=== PATIENT | male | born 1960 | race Caucasian/White ===

== ENCOUNTER 2017-08-26 12:24 | Inpatient (IN) | payer MEDICARE, MEDICAID ==
[2017-08-26] VITALS (8 sets, daily range): BP systolic 108–147; BP diastolic 60–76
[~2017-08-26] VITALS: Ht 172.7 cm; Wt 89.1 kg
[~2017-08-26 12:24] MED LIST: ACCUNEB SO1.25 MG/1 INH; AMARYL4 MG PO; AMITRIPTYLINE H25 M2 PO; ASPIRIN EC81 M1 PO; AUGMENTIN 875875 MG PO; CARVEDILOL12.5 MG PO; CARVEDILOL25 MG PO; CELEBREX 200 M200 M1 PO; COUMADIN 2 MG TA2 M1 PO; DIFLUCAN200 MG PO; DUONEB 2.5-0.5 M3 ML INH; FEOSOL325 M1 PO; FISH OIL 1,001000 M2 PO; GLYBURIDE 5 MG T5 MG PO; HUMALOG PE100 UNIT/M SC; HYDRALAZINE 2525 MG PO; HYDROCHLOROTHIA25 M2 PO; IMDUR 30 MG TAB30 M1 PO; KLOR-CON 1010 MEQ PO; LANTUSSOLASTAR SUBQ; LASIX 40 MG TAB40 M2 PO; LEVAQUIN 500 M500 M2 PO; LISINOPRIL10 MG PO; LISINOPRIL20 MG PO; LOPRESSOR50 PO; LYRICA 50 MG50 MG PO; MEN'S 50+ DAIL1 EACH PO; METFORMIN HCL500 MG PO; MOBIC15 MG PO; NEBULIZER; NEURONTIN 300300 M1 PO; NORVASC10 MG PO; OMEPRAZOLE40 MG PO; POTASSIUM20 PO; PREDNISONE 10 M10 MG PO; PRILOSEC 20 MG20 MG PO; TOPROL XL100 MG PO; VENTOLIN HFA 1818 GM INH; VITAMIN B122500 MCG PO; VITAMIN E400 UNIT PO; VITAMINC500 PO; XARELTO15 MG PO; ZESTORETIC 10-1 EACH PO; ZOCOR20 MG PO; [UNRECOGNIZED DRUG - OTHER] PO
[2017-08-26] MEDS ORDERED: CELEBREX 200 M200 M1 PO (12:38)
[2017-08-26] MEDS ORDERED: LYRICA 50 MG50 MG PO (12:39)
[2017-08-26] MEDS ORDERED: AMARYL4 MG PO (12:40)
[2017-08-26] MEDS ORDERED: PROTONIX40 M1 PO (12:40)
[2017-08-26] MEDS ORDERED: NITROGLYCERIN0.4 MG SUBLING (12:40)
[2017-08-26] MEDS ORDERED: KLOR-CON 1010 MEQ PO (12:40)
[2017-08-26 13:27] LABS: MPV 8.6 fl. (7.2-11.1)
[2017-08-26 13:29] LABS: HEMATOCRIT 28.2 % (42.0-52.0); HEMOGLOBIN 8.9 gm/dL (14.0-18.0); MCH 26.9 pg (26.0-34.0); MCHC 31.7 g/dL (28.0-37.0); MCV 84.9 fL (80.0-100.0); NUCLEATED RBCS 0 /100WBC; PLATELET COUNT* 154 thou/uL (150-400); RBC 3.32 mil/uL (4.50-6.00); WBC 7.3 thou/uL (4.0-11.0)
[2017-08-26 13:32] LABS: BE -14.1 mmol/L (-2 to +3); HCO3 13.2 mmol/L (22.0-26.0); PCO2 35.7 mmHg (35.0-45.0); PO2 61.7 mmHg (75.0-100.0)
[2017-08-26 13:32] LABS: ANION GAP 12 mmol/L (7-16); BUN 88 mg/dL (7-18); CALCIUM 7.3 mg/dL (8.5-10.1); CHLORIDE 114 mmol/L (98-107); CO2 17 mmol/L (21-32); CREATININE 6.3 mg/dL (0.6-1.3); GLUCOSE 129 mg/dL (70-99); SODIUM 143 mmol/L (136-145)
[2017-08-26 13:34] LABS: pH 7.185 (7.340-7.450)
[2017-08-26 13:39] LABS: POTASSIUM 6.9 mmol/L (3.5-5.1)
[2017-08-26 13:43] LABS: ALBUMIN 2.3 g/dL (3.4-5.0); ALKALINE PHOSPHATASE 189 U/L (46-116); MAGNESIUM 1.8 mg/dL (1.8-2.4); NT-PRO BRAIN NAT PEPTIDE > 35000 pg/mL (<300); SGOT 17 U/L (15-37); SGPT 23 U/L (30-65); TOTAL BILIRUBIN 0.2 mg/dL (<0.1-1.0); TOTAL PROTEIN 6.1 g/dL (6.4-8.2); TROPONIN-I LEVEL <0.06 ng/mL (<0.06)
[2017-08-26 14:09] LABS: ABSOLUTE EOSINOPHILS 0.2 thou/uL (0.0-0.7); ABSOLUTE LYMPHOCYTES 0.7 thou/uL (0.8-5.3); ABSOLUTE MONOCYTES 0.1 thou/uL (0.0-1.2); ABSOLUTE NEUTROPHILS 6.3 thou/uL (1.6-8.1)
[2017-08-26 14:10] LABS: ANISOCYTOSIS 2+; PLATELET ESTIMATE ADEQUATE
--- NOTE | 2017-08-26 15:20 | EKG ---
[place] [address] ELECTROCARDIOGRAM REPORT Name: ANA MARÍA MCLAUGHLIN Room: [place] [address] ADM IN R#: [id number] Admission: 08/26/17 Attend Phys: Tien Gong Discharge: Date of : 64 Report #: [id number] THIS REPORT FOR: //name// [facility] ED Test Date: 2017-08-26 Test Time: 13:37:14 Pat Name: ANA MARÍA MCLAUGHLIN Department: Room: Gender: M Sign Fabricator: KENJI : 1960 Requested By: Mervat Callahan Order Number: [id number] MD: Chris King Measurements Intervals [place] Rate: 77 P: 32 OR: 210 QRS: 50 QRSD: 113 T: 22 QT: 413 QTc: 468 Interpretive Statements Sinus rhythm Prolonged OR interval Borderline intraventricular conduction delay Low voltage, extremity leads Compared to ECG 03/29/2016 15:50:55 First degree AV block now present Low QRS voltage now present Electronically Signed On 08-26-2017 15:20:44 CDT by Chris King [email or web address] <ELECTRONICALLY SIGNED> By: Chris King MD, [facility] 08/26/17 1520 1337 1337 Chris King MD, [facility] /EPI
[2017-08-26 21:47] LABS: CREATININE 6.4 mg/dL (0.6-1.3)
[2017-08-27] VITALS (22 sets, daily range): BP systolic 130–177; BP diastolic 73–97
[2017-08-27 04:59] LABS: CALCIUM 7.5 mg/dL (8.5-10.1); CREATININE 6.4 mg/dL (0.6-1.3)
[2017-08-27 05:05] LABS: POTASSIUM 6.8 mmol/L (3.5-5.1)
[2017-08-27 08:23] LABS: CALCIUM 7.6 mg/dL (8.5-10.1); CREATININE 6.3 mg/dL (0.6-1.3)
[2017-08-27 08:27] LABS: POTASSIUM 6.3 mmol/L (3.5-5.1)
[2017-08-27 12:20] LABS: % SATURATION 13 % (20-39); IRON 28 ug/dL (50-175)
[2017-08-28] VITALS (13 sets, daily range): BP systolic 132–177; BP diastolic 44–99
[2017-08-28 04:07] LABS: HEMATOCRIT 25.5 % (42.0-52.0); HEMOGLOBIN 8.2 gm/dL (14.0-18.0); MCH 26.7 pg (26.0-34.0); MCHC 32.3 g/dL (28.0-37.0); MCV 82.8 fL (80.0-100.0); MPV 7.9 fl. (7.2-11.1); RBC 3.08 mil/uL (4.50-6.00); RDW-CV 18.4 % (10.5-14.5); WBC 8.3 thou/uL (4.0-11.0)
[2017-08-28 04:36] LABS: ALBUMIN 2.2 g/dL (3.4-5.0); CALCIUM 7.3 mg/dL (8.5-10.1); CREATININE 5.1 mg/dL (0.6-1.3); PHOSPHORUS* 5.6 mg/dL (2.5-4.9); TOTAL BILIRUBIN 0.3 mg/dL (<0.1-1.0)
[2017-08-28 13:09] LABS: HEPATITIS B SURFACE AG Negative (Negative)
[2017-08-29] VITALS: BP 130/82
[2017-08-29 04:00] VITALS: BP 130/69
[2017-08-29 04:58] LABS: CALCIUM 6.7 mg/dL (8.5-10.1); CREATININE 4.3 mg/dL (0.6-1.3); POTASSIUM 4.2 mmol/L (3.5-5.1)
[2017-08-29 07:47] VITALS: BP 125/74
[2017-08-29 08:43] LABS: HEMOGLOBIN 7.7 gm/dL (14.0-18.0); MCH 26.5 pg (26.0-34.0); MCHC 32.2 g/dL (28.0-37.0); MCV 82.4 fL (80.0-100.0); MPV 8.9 fl. (7.2-11.1); RBC 2.91 mil/uL (4.50-6.00); RDW-CV 18.2 % (10.5-14.5)
[2017-08-29 08:49] LABS: MAGNESIUM 1.3 mg/dL (1.8-2.4); PHOSPHORUS* 4.2 mg/dL (2.5-4.9)
[2017-08-29 12:25] VITALS: BP 122/66
[2017-08-29 15:53] VITALS: BP 119/63
[2017-08-29 20:00] VITALS: BP 117/64
[2017-08-30 00:10] VITALS: BP 124/68
[2017-08-30 04:10] VITALS: BP 119/63
[2017-08-30 05:21] LABS: CALCIUM 6.7 mg/dL (8.5-10.1); CREATININE 4.9 mg/dL (0.6-1.3); POTASSIUM 4.7 mmol/L (3.5-5.1); TOTAL BILIRUBIN 0.4 mg/dL (<0.1-1.0); TOTAL PROTEIN 5.1 g/dL (6.4-8.2)
[2017-08-30 08:00] VITALS: BP 111/59
[2017-08-30 08:41] LABS: URINE BILIRUBIN NEGATIVE (Negative); URINE BLOOD 2+ (Negative); URINE CLARITY CLEAR; URINE COLOR YELLOW; URINE GLUCOSE-RANDOM NEGATIVE (Negative); URINE KETONES NEGATIVE (Negative); URINE LEUKOCYTES-REFLEX 1+ (Negative); URINE NITRITE-REFLEX NEGATIVE (Negative); URINE PROTEIN 3+ (Negative); URINE UROBILINOGEN 0.2 E.U./dl (0.2-1.0)
[2017-08-30 08:57] LABS: HYALINE CASTS 0-3 Few /LPF (None Seen); SQUAMOUS NONE SEEN /LPF (0-3)
[2017-08-30 08:58] LABS: CRYSTALS None Seen /LPF (None Seen); URINE RBC 0-2 Rare /HPF (0-2); URINE WBC-REFLEX 6-15 Few /HPF (0-5); YEAST-REFLEX Present (None Seen)
[2017-08-30 12:19] VITALS: BP 109/70
[2017-08-30 16:23] VITALS: BP 147/78
[2017-08-30 20:00] VITALS: BP 126/66
[2017-08-31] VITALS: BP 117/67
[2017-08-31 04:00] VITALS: BP 111/63
[2017-08-31 04:34] LABS: ABSOLUTE EOSINOPHILS 0.4 thou/uL (0.0-0.7); ABSOLUTE LYMPHOCYTES 0.8 thou/uL (0.8-5.3); ABSOLUTE MONOCYTES 1.4 thou/uL (0.0-1.2); ABSOLUTE NEUTROPHILS 5.1 thou/uL (1.6-8.1); BASOPHILS 0.4 %; EOSINOPHILS 4.7 %; HEMATOCRIT 23.6 % (42.0-52.0); HEMOGLOBIN 7.6 gm/dL (14.0-18.0); LYMPHOCYTES 10.1 %; MCH 26.7 pg (26.0-34.0); MCHC 32.1 g/dL (28.0-37.0); MCV 83.1 fL (80.0-100.0); MONOCYTES 18.1 %; NUCLEATED RBCS 0 /100WBC; PLATELET COUNT* 132 thou/uL (150-400); POLYS 66.7 %; RBC 2.84 mil/uL (4.50-6.00); RDW-CV 17.7 % (10.5-14.5); WBC 7.7 thou/uL (4.0-11.0)
[2017-08-31 04:54] LABS: CALCIUM 7.1 mg/dL (8.5-10.1); MAGNESIUM 1.6 mg/dL (1.8-2.4); POTASSIUM 4.2 mmol/L (3.5-5.1)
[2017-08-31 05:00] LABS: CREATININE 3.5 mg/dL (0.6-1.3)
[2017-08-31 09:30] VITALS: BP 125/64
[2017-08-31 12:00] VITALS: BP 137/71
[2017-08-31 16:00] VITALS: BP 145/79
[2017-08-31 20:00] VITALS: BP 145/76
[2017-09-01 00:47] VITALS: BP 131/66
[2017-09-01 04:21] VITALS: BP 175/74
[2017-09-01 08:00] VITALS: BP 139/74
[2017-09-01 11:43] LABS: CALCIUM 7.2 mg/dL (8.5-10.1); MAGNESIUM 1.6 mg/dL (1.8-2.4); PHOSPHORUS* 5.2 mg/dL (2.5-4.9); POTASSIUM 4.9 mmol/L (3.5-5.1)
[2017-09-01 11:44] LABS: CREATININE 4.6 mg/dL (0.6-1.3)
[2017-09-01 12:00] VITALS: BP 142/64
[2017-09-01 16:00] VITALS: BP 105/55
[2017-09-01 17:13] LABS: eGFR IF AFRICAN AMERICAN 17 (>59)
[2017-09-01 20:00] VITALS: BP 151/75
[2017-09-02] VITALS (7 sets, daily range): BP systolic 130–149; BP diastolic 68–90
[2017-09-02 06:08] LABS: ALBUMIN 1.9 g/dL (3.4-5.0); CALCIUM 7.2 mg/dL (8.5-10.1); MAGNESIUM 1.6 mg/dL (1.8-2.4); PHOSPHORUS* 4.4 mg/dL (2.5-4.9); POTASSIUM 4.1 mmol/L (3.5-5.1)
[2017-09-02 06:20] LABS: CREATININE 3.1 mg/dL (0.6-1.3)
[2017-09-02 11:14] LABS: PARATHYROID HORMONE 174 pg/mL (15-65)
--- NOTE | 2017-09-02 15:46 | OP ---
[facility] [address] [place] [address] OPERATIVE REPORT Name: ANA MARÍA MCLAUGHLIN Room: [address] IN M.R.#: [id number] Admission: 08/26/17 Attend Phys: Tien Gong Discharge: Date of : 64 Report #: [id number] THIS REPORT FOR: //name// CC: RANJANA Buckley DATE OF SERVICE: 09/02/2017 PREOPERATIVE DIAGNOSIS: End-stage renal disease. POSTOPERATIVE DIAGNOSIS: End-stage renal disease. PROCEDURE: Over the wire exchange of a temporary dialysis catheter for a tunneled dialysis catheter. SURGEON: Abhay Smallwood DO. LSW: None. ANESTHESIA: Sedation local. ESTIMATED BLOOD LOSS: 50 mL. FLUIDS: None. SPECIMENS: None. COMPLICATIONS: None. FINDINGS: Catheter was positioned at the tip of the right atrium SVC junction, tunneled well, flushed and aspirated well without issue. CLINICAL HISTORY: The patient is a 57-year-old man who is currently undergoing hemodialysis through a temporary right IJ dialysis catheter. He is in need of exchange for a tunneled dialysis catheter for more durable option. DESCRIPTION OF PROCEDURE: After informed consent was obtained, the patient was taken to the angio suite, placed on the angio bed in supine position. He was administered 1 Versed and 25 mcg fentanyl by the nurse at my discretion. His right neck was prepped and draped in usual sterile fashion. Full timeout was performed identifying correct patient and procedure. Next, the wire was passed through the temporary dialysis catheter down the IVC. Removed the temporary dialysis catheter and then placed the introducer sheath over the wire. Enlarged the skin incision in the neck. I then passed a second wire again under fluoroscopic guidance in the IVC. I then dilated the tract and then passed the catheter over the wire under fluoroscopic guidance [place] [address] OPERATIVE REPORT Name: ANA MARÍA MCLAUGHLIN Room: [address] IN [facility]#: [id number] Admission: 08/26/17 Attend Phys: Tien Gong Discharge: Date of : 64 Report #: [id number] atrium SVC junction. This was all done after anesthetizing the skin and subcutaneous tissues lidocaine anesthetic. I then anesthetized the right chest wall, made a small stab incision in the right chest wall, passed the tunneler retrograde up to the neck incision and then fixed catheter to the tunneler and tunneled under fluoroscopic guidance to ensure no kink or twist. The catheter was then tailored to length. Both ports were applied. Both ports aspirated and flushed well. Both ports were packed with concentrated heparin. The neck incision was closed with 3-0 Monocryl suture. The catheter secured to the chest wall with 3-0 Monocryl suture. Sterile dressings were applied. All sponge, sharp and instrument counts reported correct x 2. He tolerated the procedure well and was transferred back to his room in stable condition. <ELECTRONICALLY SIGNED> By: Abhay Smallwood DO 09/02/17 1546 1524 1544Austfer Smallwood DO /nt
[2017-09-03 03:52] VITALS: BP 139/69; BP 144/77
[2017-09-03 05:28] LABS: HEMATOCRIT 24.4 % (42.0-52.0); HEMOGLOBIN 7.8 gm/dL (14.0-18.0); MCH 26.4 pg (26.0-34.0); MCHC 32.1 g/dL (28.0-37.0); MCV 82.4 fL (80.0-100.0); MPV 8.3 fl. (7.2-11.1); NUCLEATED RBCS 0 /100WBC; PLATELET COUNT* 164 thou/uL (150-400); RBC 2.96 mil/uL (4.50-6.00); RDW-CV 16.7 % (10.5-14.5); WBC 11.3 thou/uL (4.0-11.0)
[2017-09-03 06:17] LABS: ALBUMIN 1.8 g/dL (3.4-5.0); CALCIUM 7.4 mg/dL (8.5-10.1); CREATININE 3.7 mg/dL (0.6-1.3); MAGNESIUM 1.7 mg/dL (1.8-2.4); PHOSPHORUS* 5.3 mg/dL (2.5-4.9); POTASSIUM 4.1 mmol/L (3.5-5.1)
[2017-09-03 07:52] VITALS: BP 130/71
[2017-09-03 08:57] LABS: ABSOLUTE BASOPHILS 0.1 thou/uL (0.0-0.2); ABSOLUTE EOSINOPHILS 0.2 thou/uL (0.0-0.7); ABSOLUTE LYMPHOCYTES 0.8 thou/uL (0.8-5.3); ABSOLUTE MONOCYTES 0.8 thou/uL (0.0-1.2); ABSOLUTE NEUTROPHILS 9.4 thou/uL (1.6-8.1)
[2017-09-03 08:58] LABS: HYPOCHROMASIA Occasional; MACROCYTES Occasional; PLATELET ESTIMATE ADEQUATE
[2017-09-03 08:59] LABS: SCHISTOCYTES Occasional
[2017-09-03 16:00] VITALS: BP 137/63
[2017-09-04] VITALS: BP 154/72
[2017-09-04 04:00] VITALS: BP 133/72
[2017-09-04 04:56] LABS: HEMOGLOBIN 7.9 gm/dL (14.0-18.0); MCH 26.4 pg (26.0-34.0); MCHC 31.5 g/dL (28.0-37.0); MCV 83.9 fL (80.0-100.0); MPV 8.2 fl. (7.2-11.1); RBC 2.98 mil/uL (4.50-6.00); RDW-CV 16.7 % (10.5-14.5); WBC 10.8 thou/uL (4.0-11.0)
[2017-09-04 05:21] LABS: ALBUMIN 1.8 g/dL (3.4-5.0); CALCIUM 7.3 mg/dL (8.5-10.1); CREATININE 4.1 mg/dL (0.6-1.3); MAGNESIUM 1.7 mg/dL (1.8-2.4); PHOSPHORUS* 4.4 mg/dL (2.5-4.9); POTASSIUM 4.2 mmol/L (3.5-5.1)
[2017-09-04 08:00] VITALS: BP 141/72
[2017-09-04 23:41] VITALS: BP 147/73
[2017-09-05 03:29] VITALS: BP 114/76
[2017-09-05 05:20] LABS: ALBUMIN 1.8 g/dL (3.4-5.0); CALCIUM 7.5 mg/dL (8.5-10.1); MAGNESIUM 1.7 mg/dL (1.8-2.4); PHOSPHORUS* 3.4 mg/dL (2.5-4.9); POTASSIUM 3.8 mmol/L (3.5-5.1)
[2017-09-05 05:21] LABS: CREATININE 3.1 mg/dL (0.6-1.3)
[2017-09-05 08:00] VITALS: BP 142/69
[2017-09-05 11:30] VITALS: BP 136/71
[2017-09-05] MEDS ORDERED: HYDROCODON-ACE1 EAC7 PO ×2 (14:05→15:04)
[2017-09-05 14:12] LABS: IgA 247 mg/dL (90-386); IgG 971 mg/dL (700-1600); IgM 106 mg/dL (20-172)
[2017-09-05 16:00] VITALS: BP 127/63
[2017-09-05 19:35] VITALS: BP 134/65
[2017-09-06 00:04] VITALS: BP 153/67
[2017-09-06 03:49] VITALS: BP 145/70
[2017-09-06 08:00] VITALS: BP 153/76
[2017-09-06] MEDS ORDERED: FLOMAX0.4 MG PO ×2 (16:01→16:19)
[2017-09-06 16:11] VITALS: BP 153/76
[2017-09-06] MEDS ORDERED: XARELTO20 MG PO (16:13)
[2017-09-06] MEDS ORDERED: VITAMIN D1000 UNI1 PO (16:17)
--- NOTE | 2017-09-07 15:18 | CON ---
[address] [address] CONSULTATION Name: ANA MARÍA MCLAUGHLIN Room: [address] IN M.R.#: [id number] Admission: 08/26/17 Attend Phys: Tien Gong Discharge: 09/06/17 Date of : 64 Report #: [id number] THIS REPORT FOR: //name// CC: RANJANA Buckley DICTATED BY: Julisa ALFARO This is CORY Travis dictating in collaboration with Dr. Charlie العراقي. REASON FOR CONSULTATION: Tunneled dialysis catheter placement. HISTORY OF PRESENT ILLNESS: The patient is a 57-year-old male who presented to the Emergency Department with complaints of shortness of breath, cough, congestion, and chills. He also complained of generalized swelling. He does have a history of kidney disease, but apparently has not followed up as an outpatient. He was found to be in acute renal failure on admission, thought to be related to recent Bactrim use. He has bilateral foot wounds, follows at the [address] for local wound care. He had a temporary dialysis catheter placed in the right internal jugular vein on 08/27 for the initiation of hemodialysis. We have been asked to evaluate the patient for placement of a tunneled dialysis catheter for ongoing dialysis needs. The patient currently complains of feeling "wore out." He continues to complain of generalized edema. He reports he has done very little walking over the past year. He is able to walk some in his home with a walker, utilizes a scooter when he goes to the grocery store. He does live in his own home. PAST MEDICAL HISTORY: 1. Renal insufficiency. 2. Diabetes mellitus. 3. Hypertension. 4. Obesity. 5. Hypercholesterolemia. 6. Tobaccoism. 7. History of a right carotid artery rupture in 1995. 8. Neuropathy. 9. Congestive heart failure. 10. Chronic obstructive pulmonary disease. 11. Coronary artery disease. 12. History of bilateral lower extremity deep vein thrombosis. 13. 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 14. History of pulmonary emboli. PAST SURGICAL HISTORY: 1. Cervical fusion x 2. 2. [place] [address] CONSULTATION Name: ANA MARÍA MCLAUGHLIN Room: [address]#: [id number] Admission: 08/26/17 Attend Phys: Tien Gong Discharge: 09/06/17 Date of : 64 Report #: [id number] 3. Abdominal hernia repair. 4. Removal of a benign lipoma from his abdomen. 5. Right thumb amputation. SOCIAL HISTORY: He is a former smoker. He does live in his own home. FAMILY HISTORY: Significant for heart disease, diabetes, hypertension, renal disease. ALLERGIES: LEVOFLOXACIN. HOME MEDICATIONS: 1. Elavil 100 mg at bedtime. 2. Imdur 30 mg daily. 3. Norvasc 10 mg daily. 4. Feosol 325 mg twice daily. 5. Lantus insulin 15 units before breakfast. 6. Humalog insulin 1-7 units subcutaneously with meals. 7. AccuNeb 1.25 mg per 3 mL, 2 puffs by inhalation every 6 hours as needed for shortness of air. 8. Lasix 80 mg daily. 9. Celebrex 200 mg daily. 10. Lyrica 50 mg daily. 11. Nitrostat 0.4 mg sublingually as needed for chest pain. 12. Amaryl 4 mg daily. 13. Protonix 40 mg daily. 14. Klor-Con 10 mEq daily. 15. Zocor 40 mg at bedtime. 16. Coreg 25 mg twice daily. REVIEW OF SYSTEMS: A 12-point review of systems has been reviewed and is negative except for the above-mentioned in the history of present illness. PHYSICAL EXAMINATION: GENERAL: He is alert, oriented, in no acute distress. He does appear somewhat lethargic, generalized edema. HEENT: Head is normocephalic, atraumatic. NECK: Supple, he has a temporary dialysis catheter on the right neck. No carotid bruit appreciated. HEART: Regular rate and rhythm. CHEST: Lungs are clear to auscultation bilaterally. ABDOMEN: Soft, nontender, positive bowel sounds. EXTREMITIES: He has palpable bilateral radial, femoral and 1+ pedal pulses. He has ulcers on the right lateral plantar foot as well as 1 ulcer on the left lateral plantar foot, superficial wound on the posterior aspect of the left lower leg. He has chronic hemosiderin [place] [address] CONSULTATION Name: ANA MARÍA MCLAUGHLIN Marie Room: [address]#: [id number] Admission: 08/26/17 Attend Phys: Tien Gong Discharge: 09/06/17 Date of : 64 Report #: [id number] with chronic skin changes. NEUROLOGIC: Alert and oriented with no focal neurologic deficits. LABORATORY DATA: Hemoglobin 7.6, hematocrit 23.6, white blood cell count 7.7, platelets is 132. Sodium 134, potassium 4.9, chloride 98, CO2 of 29, BUN 46, creatinine is 4.6. ASSESSMENT AND PLAN: 1. Acute on chronic renal insufficiency, currently on dialysis via a right temporary dialysis catheter. We have been asked to place a tunneled dialysis catheter. The patient ate lunch this afternoon, so we are unable to place a line today. We will try to coordinate tunneled dialysis catheter placement tomorrow. Continue hemodialysis per Nephrology. 2. Chronic bilateral lower extremity wounds, he follows as an outpatient weekly at [facility]. Needs to offload, continue local wound care. 3. Chronic obstructive pulmonary disease. 4. Pneumonia. We thank you for the opportunity to participate in the care of the patient. Please feel free to contact our office with any questions or concerns. <ELECTRONICALLY SIGNED> By: Jacob Benoit DO 09/07/17 1518 1417 Magalis العراقي MD /katelin
--- NOTE | 2017-09-08 09:59 | CON ---
[address] [address] CONSULTATION Name: ANA MARÍA MCLAUGHLIN Room: [address] IN M.R.#: [id number] Admission: 08/26/17 Attend Phys: Tien Gong Discharge: 09/06/17 Date of : 64 Report #: [id number] THIS REPORT FOR: //name// CC: RANJANA Buckley DATE OF SERVICE: 08/27/2017 REQUESTING PHYSICIAN: Durga Buckley DO. REASON FOR CONSULTATION: Acute on chronic kidney disease and hyperkalemia. HISTORY OF PRESENT ILLNESS: The patient is a 57-year-old white male with medical history of medical noncompliance. He was seen by us year ago with renal problems, fairly advanced at that time, never followed with us in the office. He has poorly controlled diabetes, poorly controlled hypertension, morbid obesity, hypercholesterolemia, presents to the hospital with the complaints of not feeling well, having shortness of breath, cough, worsening of his edema. The patient apparently was taking Bactrim for his wound cleaning for the last 10 days. PAST MEDICAL HISTORY: As I mentioned earlier, his renal disease is fairly advanced. Creatinine was 2.9 in 11/2016, at that time GFR was already in low 20s. Again, no followup with us. Most likely, he has diabetic nephropathy. The rest of the history was as mentioned earlier. In the Emergency Room, he was found to be acidotic with bicarbonate of 14. His serum potassium was 7.0, BUN was 95, creatinine 6.3. The patient initially refused dialysis. He was treated with Kayexalate, calcium gluconate, glucose, bicarbonate, insulin. His potassium this morning is 6.3. Creatinine unchanged 6.3 as well. SOCIAL HISTORY: Positive for tobacco abuse. FAMILY HISTORY: Positive for diabetes in both parents. REVIEW OF SYSTEMS: Positive for weakness, not feeling well, nausea, cough, shortness of breath, increased edema. PHYSICAL EXAMINATION: GENERAL: He is awake and alert. VITAL SIGNS: Blood pressure 163/73, heart rate 87, afebrile. HEENT: [place] [address] CONSULTATION Name: ANA MARÍA MCLAUGHLIN Room: [address]#: [id number] Admission: 08/26/17 Attend Phys: Tien Gong Discharge: 09/06/17 Date of : 64 Report #: [id number] NECK: Elevated JVD. LUNGS: Decreased breath sounds at the bases. CARDIOVASCULAR: Regular rate. ABDOMEN: Obese with abdominal wall swelling. LOWER EXTREMITIES: With edema. ASSESSMENT: 1. A 57-year-old man with chronic kidney disease stage 4, possibly stage 5, presents with acute worsening of his renal function, probably due to Bactrim, but there is also a possibility that he is just progressing and now his creatinine of 6 at his baseline. At this point, due to resistant hyperkalemia, metabolic acidosis, fluid overload, I will start him on dialysis. We will start him with temporary dialysis line, dialyze him 2-1/2 hours today. We will watch his urine output, watch his renal function. The patient may require chronic dialysis. Again, that could be end-stage renal disease due to progressive diabetic nephropathy. 2. Uncontrolled diabetes mellitus. 3. Uncontrolled hypertension. 4. Obesity. 5. Coronary artery disease. 6. Chronic obstructive pulmonary disease. Thank you very much for asking my opinion on acute kidney injury and hyperkalemia. <ELECTRONICALLY SIGNED> By: Beinto Schaeffer MD 09/08/17 0959 1118 1740Alexaarun Schaeffer MD /nt
[2017-09-08 14:09] LABS: KAPPA FREE LIGHT CHAINS 115.4 mg/L (3.3-19.4); LAMBDA FREE LIGHT CHAINS 84.7 mg/L (5.7-26.3)
[2017-09-08 19:09] LABS: GLOBULIN TOTAL 2.9 g/dL (2.2-3.9); M-SPIKE Not Observed g/dL (Not Observed)
== END 2017-09-06 18:56 | disposition home health service (06) | DRG 177 ==
LOC: M.ERS 12:24 → M.ICU 15:06 → M.TBA-ER 15:06 → M.ICU 17:01 → M.2W 08-29 12:58
PROVIDERS: Internal Medicine; Internal Medicine Nephrology; Personal Emergency Response Attendant; ADMIT Internal Medicine
PROC: 02HV33Z Insertion of Infusion Device into Superior Vena Cava, Percutaneous Approach (ICD-10-PCS; principal; 2017-08-27)
PROC: B548ZZA Ultrasonography of Superior Vena Cava, Guidance (ICD-10-PCS; principal; 2017-08-27)
PROC: 5A1D70Z Performance of Urinary Filtration, Intermittent, Less than 6 Hours Per Day (ICD-10-PCS; 2017-08-28)
PROC: 5A1D70Z Performance of Urinary Filtration, Intermittent, Less than 6 Hours Per Day (ICD-10-PCS; 2017-08-31)
PROC: 5A1D70Z Performance of Urinary Filtration, Intermittent, Less than 6 Hours Per Day (ICD-10-PCS; 2017-09-01)
PROC: 02HV33Z Insertion of Infusion Device into Superior Vena Cava, Percutaneous Approach (ICD-10-PCS; 2017-09-02)
PROC: B5181ZA Fluoroscopy of Superior Vena Cava using Low Osmolar Contrast, Guidance (ICD-10-PCS; 2017-09-02)
PROC: 0JH63XZ Insertion of Tunneled Vascular Access Device into Chest Subcutaneous Tissue and Fascia, Percutaneous Approach (ICD-10-PCS; 2017-09-02)
PROC: 5A1D70Z Performance of Urinary Filtration, Intermittent, Less than 6 Hours Per Day (ICD-10-PCS; 2017-09-03)
PROC: 5A1D70Z Performance of Urinary Filtration, Intermittent, Less than 6 Hours Per Day (ICD-10-PCS; 2017-09-04)
PROC: 5A1D70Z Performance of Urinary Filtration, Intermittent, Less than 6 Hours Per Day (ICD-10-PCS; 2017-09-06)
DX: J69.0 Pneumonitis due to inhalation of food and vomit (principal); J96.20 Acute and chronic respiratory failure, unspecified whether with hypoxia or hypercapnia; N17.0 Acute kidney failure with tubular necrosis; N18.6 End stage renal disease; I12.0 Hypertensive chronic kidney disease with stage 5 chronic kidney disease or end stage renal disease; Z66 Do not resuscitate; E11.22 Type 2 diabetes mellitus with diabetic chronic kidney disease; E78.00 Pure hypercholesterolemia, unspecified; E11.21 Type 2 diabetes mellitus with diabetic nephropathy; E66.01 Morbid (severe) obesity due to excess calories; E78.5 Hyperlipidemia, unspecified; E11.40 Type 2 diabetes mellitus with diabetic neuropathy, unspecified; E87.5 Hyperkalemia; E11.649 Type 2 diabetes mellitus with hypoglycemia without coma; N50.89 Other specified disorders of the male genital organs; E87.70 Fluid overload, unspecified; D63.1 Anemia in chronic kidney disease; D50.9 Iron deficiency anemia, unspecified; E55.9 Vitamin D deficiency, unspecified; J44.9 Chronic obstructive pulmonary disease, unspecified; I25.10 Atherosclerotic heart disease of native coronary artery without angina pectoris; Z86.718 Personal history of other venous thrombosis and embolism; Z79.01 Long term (current) use of anticoagulants; Z89.011 Acquired absence of right thumb; Z86.711 Personal history of pulmonary embolism; Z88.1 Allergy status to other antibiotic agents; Z91.14 Patient's other noncompliance with medication regimen; Z68.29 Body mass index [BMI] 29.0-29.9, adult; Z87.891 Personal history of nicotine dependence; Z98.890 Other specified postprocedural states; Z79.2 Long term (current) use of antibiotics; Z79.82 Long term (current) use of aspirin; Z79.899 Other long term (current) drug therapy; Z79.4 Long term (current) use of insulin; Z82.49 Family history of ischemic heart disease and other diseases of the circulatory system; Z83.3 Family history of diabetes mellitus; Z84.1 Family history of disorders of kidney and ureter

== ENCOUNTER 2018-10-04 23:53 | Inpatient (IN) | payer MEDICARE, MEDICAID ==
[~2018-10-04] VITALS: Ht 177.8 cm; Wt 91.1 kg
--- NOTE | ~2018-10-04 | EEG ---
[address] [address] EEG STUDY REPORT Name: ANA MARÍA MCLAUGHLIN Room: [address] IN M.R.#: [id number] Admission: 10/05/18 Attend Phys: Pako Jang MD Discharge: Date of : 64 Report #: [id number] THIS REPORT FOR: //name// CC: Pako Jang [facility] DATE OF SERVICE: 10/06/2018 This patient is being evaluated for altered mental status. EEG was done by placing the electrode by standard 10-20 system of electrode placement. Both referential and sequential montages were used for recording. Background activity in this patient's EEG is about 8 Hz and 40 microvolt. The patient became drowsy that is associated with bilateral slowing. Photic stimulation is unremarkable. Throughout the record, no active epileptiform activity was noticed. IMPRESSION: This is a moderately abnormal EEG because it is disorganized and poorly formed. That is a nonspecific abnormality, which can occur with encephalopathy, effect of psychotropic medication, dementia, etc. Clinical correlation is recommended. By: 1439 1452Pdebra Hodges MD /nt
--- NOTE | ~2018-10-04 | CON ---
[address] [address] CONSULTATION Name: ANA MARÍA MCLAUGHLIN Room: [address] ADM IN M.R.#: [id number] Admission: 10/05/18 Attend Phys: Pako Jang MD Discharge: Date of : 64 Report #: [id number] THIS REPORT FOR: //name// [facility] DATE OF SERVICE: 10/05/2018 DICTATED BY: Dr. Pratt HISTORY OF PRESENT ILLNESS: This is a 58-year-old male patient who was evaluated by me for altered mental status. The patient's history is not reliable. I reviewed the records from the hospital in [place] and I talked to the nurses. None of the family member is present. He is admitted with altered mental status with multiple underlying issues. He has renal failure. He has a high white count. ID is consulted for that. Apparently, his blood pressure was low and continued to be low. He is short of breath. According to the nurses, he had a history of congestive heart failure. He is not able to provide any reliable history. Record indicates that he also has a history of DVT. REVIEW OF SYSTEMS: A 14-point review of system was carried out. He has a history of renal failure, diabetes. He has foot problems on the right side and he still has a pretty significant swelling. He has presumed sepsis. He has a prostate nodule. He has metabolic acidosis. His chest x-ray demonstrated pneumonia, which is becoming worse. This was his relevant 14-point review of system, which I could obtain. PAST MEDICAL HISTORY: Positive for above as well as a neuropathy. He also has a history of cervical spine fusion. FAMILY HISTORY: Unavailable. SOCIAL HISTORY: By records, he smokes but drink alcohol occasionally. PHYSICAL EXAMINATION: Pretty limited. He can talk. He can tell me what month it is and what hospital he is in. His speech is difficult to understand, but I do not know what his baseline is. His cranial nerve examination 2 was attempted. It was incomplete. He is not able to provide any reliable cooperation to do that, especially visual field. He is able to move all 4 extremities. His right foot is swollen and he indicates he has trouble there for some time. He said he has altered sensation in both lower extremities and he has been diagnosed with neuropathy. He appeared to be short of breath. His pulses are difficult to feel. I do not know what his baseline is. His last blood pressure is only 89/45. He does have a temperature of 100.3, pulse rate is 93[place] [address] CONSULTATION Name: ANA MARÍA MCLAUGHLIN Room: [address] IN .R.#: [id number] Admission: 10/05/18 Attend Phys: aPko Jang MD Discharge: Date of : 64 Report #: [id number] LABORATORY DATA: His white count is 16.2. He did have a CT scan in the outside facility and that does not show any acute changes. IMPRESSION: It would appear this patient most likely has encephalopathy because of systemic problems including sepsis, pneumonia. C and S etiology cannot be fully excluded, but is considered less likely. RECOMMENDATIONS: I will discuss the patient with you. Depending upon his history, it might be desirable to do blood gases to look for his CO2 level and do some more pulmonary workup. Neurologically, I will get an EEG done, but I do not think we can do much at this stage because he is not in a shape to go for MRI. I will discuss this patient with you. By: 0940 1950David Hodges MD /nt
[~2018-10-04 23:53] MED LIST changes: +FLOMAX0.4 MG PO; +HYDROCODON-ACE1 EAC7 PO; +NITROGLYCERIN0.4 MG SUBLING; +PROTONIX40 M1 PO; +VITAMIN D1000 UNI1 PO; +XARELTO20 MG PO
[2018-10-05] VITALS (68 sets, daily range): BP systolic 64–135; BP diastolic 36–103
[2018-10-05 02:12] LABS: HEMATOCRIT 28.1 % (42.0-52.0); HEMOGLOBIN 9.1 gm/dL (14.0-18.0); MCH 27.4 pg (26.0-34.0); MCHC 32.5 g/dL (28.0-37.0); MCV 84.3 fL (80.0-100.0); MPV 8.7 fl. (7.2-11.1); RBC 3.34 mil/uL (4.50-6.00); RDW-CV 15.9 % (10.5-14.5); WBC 16.2 thou/uL (4.0-11.0)
[2018-10-05 02:27] LABS: ANION GAP 13 mmol/L (7-16); BUN 77 mg/dL (7-18); CALCIUM 7.9 mg/dL (8.5-10.1); CHLORIDE 101 mmol/L (98-107); CO2 22 mmol/L (21-32); CREATININE 6.6 mg/dL (0.6-1.3); GLUCOSE 173 mg/dL (70-99); POTASSIUM 5.3 mmol/L (3.5-5.1); SODIUM 136 mmol/L (136-145)
[2018-10-05 02:37] LABS: ALBUMIN 2.3 g/dL (3.4-5.0); ALKALINE PHOSPHATASE 235 U/L (46-116); SGOT 21 U/L (15-37); SGPT 47 U/L (30-65); TOTAL BILIRUBIN 1.1 mg/dL (<0.1-1.0); TOTAL PROTEIN 6.7 g/dL (6.4-8.2); TROPONIN-I LEVEL <0.06 ng/mL (<0.06)
[2018-10-05 03:22] LABS: URINE BILIRUBIN NEGATIVE (Negative); URINE BLOOD TRACE (Negative); URINE CLARITY CLEAR; URINE COLOR YELLOW; URINE GLUCOSE-RANDOM 2+ (Negative); URINE KETONES NEGATIVE (Negative); URINE LEUKOCYTES NEGATIVE (Negative); URINE NITRITE NEGATIVE (Negative); URINE PROTEIN 3+ (Negative); URINE SPECIFIC GRAVITY 1.015 (1.005-1.030); URINE UROBILINOGEN 0.2 E.U./dl (0.2-1.0)
[2018-10-05 03:45] LABS: AMP/METHAMP Negative (Negative); BARBITURATES Negative (Negative); BENZODIAZEPINES Negative (Negative); COCAINE Negative (Negative); METHADONE Negative (Negative); OPIATES Negative (Negative); PCP Negative (Negative); THC Negative (Negative)
[2018-10-05 04:06] LABS: FINE GRANULAR CASTS 0-3 Few /LPF (None Seen); HYALINE CASTS 0-3 Few /LPF (None Seen); SQUAMOUS 0-3 Few /LPF (0-3)
[2018-10-05 04:07] LABS: AMORPHOUS URATES Few /LPF (None Seen); BACTERIA 1-9 Few /HPF (None Seen); URINE RBC 0-2 Rare /HPF (0-2); URINE WBC 0-5 Rare /HPF (0-5)
--- NOTE | 2018-10-05 11:02 | EKG ---
[place] [address] ELECTROCARDIOGRAM REPORT Name: ANA MARÍA MCLAUGHLIN Room: [address] ADM IN M.R.#: [id number] Admission: 10/05/18 Attend Phys: Pako Jang MD Discharge: Date of : 64 Report #: [id number] THIS REPORT FOR: //name// [facility] Test Date: 2018-10-05 Test Time: 01:30:42 Pat Name: ANA MARÍA MCLAUGHLIN Department: Room: [address] Gender: M Beamer Hand: [id number] : 1960 Requested By: Pako Jang Order Number: [id number] Reading MD: Chris King Measurements Intervals [place] Rate: 75 P: 36 [place]: 197 QRS: 43 QRSD: 117 T: -3 QT: 438 QTc: 490 Interpretive Statements Sinus rhythm Borderline low voltage, extremity leads Minimal ST elevation, anterior leads Baseline wander in lead(s) V2 Compared to ECG 08/26/2017 13:37:14 no change Electronically Signed On 10-05-2018 11:02:32 CDT by Chris King [email or web address] <ELECTRONICALLY SIGNED> By: Chris King MD, [facility] 10/05/18 1102 0130 0130 Chris King MD, [facility] /EPI
[2018-10-05 11:28] LABS: BE -4.5 mmol/L (-2 to +3); PCO2 39.8 mmHg (35.0-45.0); PO2 60.3 mmHg (75.0-100.0); pH 7.338 (7.340-7.450)
--- NOTE | 2018-10-05 15:51 | 2DMMODE ---
[place] [address] 2 D/M-MODE ECHOCARDIOGRAM Name: ANA MARÍA MCLAUGHLIN Room: [address] IN [facility]#: [id number] Admission: 10/05/18 Attend Phys: Pako Jang, Discharge: Date of : 64 Date of Service: 10/05/18 1551 Report #: [id number] THIS REPORT FOR: //name// APPROVED REPORT Study performed: 10/05/2018 14:02:54 EXAM: Comprehensive 2D, Doppler, and color-flow Echocardiogram Patient Location: In-Patient Room #: 002 Status: routine BSA: 2.08 HR: 89 bpm BP: 92/53 mmHg Rhythm: NSR Other Information Study Quality: Good Indications Dyspnea 2D Dimensions IVSd: 17.30 (7-11mm) LVOT Diam: 24.65 (18-24mm) LVDd: 55.62 mm PWd: 12.97 (7-11mm) Ascending Ao: 35.37 (22-36mm) LVDs: 41.97 (25-40mm) Aortic Root: 32.39 mm Volumes Left Atrial Volume (Systole) LA ESV Index: 42.70 mL/m2 Aortic Valve AoV Peak Daljit.: 1.10 m/s AO Peak Gr.: 4.84 mmHg LVOT Max P.71 mmHg AO Mean Gr.: 3.28 mmHg LVOT Mean P.93 mmHg LVOT Max V: 0.96 m/s AO V2 VTI: 18.98 cm LVOT Mean V: 0.65 m/s POONAM (VTI): 4.26 cm2 LVOT V1 VTI: 16.95 cm Mitral Valve E/A Ratio: 2.68 MV Decel. Time: 161.61 ms MV E Max Daljit.: 1.22 m/[place] [address] 2 D/M-MODE ECHOCARDIOGRAM Name: LISSETTEANA MARÍA Salazar Room: [address] IN .R.#: [id number] Admission: 10/05/18 Attend Phys: Pako Jang, Discharge: Date of : 64 Date of Service: 10/05/18 1551 Report #: [id number] MV PHT: 46.87 ms MVA (PHT): 4.69 cm2 TDI E/Lateral E': 9.38 E/Medial E': 15.25 Medial E' Daljit.: 0.08 m/s Lateral E' Daljit.: 0.13 m/s Pulmonary Valve PV Peak Daljit.: 0.70 m/s PV Peak Gr.: 1.94 mmHg Tricuspid Valve RAP Estimate: 5.00 mmHg TR Peak Gr.: 19.79 mmHg RVSP: 24.00 mmHg PA Pressure: 24.00 mmHg Left Ventricle The left ventricle is normal size. There is global hypokinesis of the left ventricle. Mild to moderate concentric left ventricular hypertrophy. Left ventricular systolic function is severely decreased. LVEF is 25-30%. The left ventricular diastolic function is normal. Right Ventricle Right ventricle is dilated. The right ventricular systolic function is normal. Atria Left atrium is moderately dilated. The right atrium size is normal. Aortic Valve Mild aortic valve sclerosis. No aortic regurgitation is present. There is no aortic valvular stenosis. Mitral Valve The mitral valve is normal in structure. Trace mitral regurgitation. No evidence of mitral valve stenosis. Tricuspid Valve The tricuspid valve is normal in structure. Trace tricuspid regurgitation. No pulmonary hypertension. Pulmonic Valve The pulmonary valve is normal in structure. Mild [place] [address] 2 D/M-MODE ECHOCARDIOGRAM Name: ANA MARÍA MCLAUGHLIN Room: [address] IN [facility]#: [id number] Admission: 10/05/18 Attend Phys: Pako Jang, Discharge: Date of : 64 Date of Service: 10/05/18 1551 Report #: [id number] Great Vessels The aortic root is normal in size. IVC is normal in size and collapses >50% with inspiration. Pericardium Trace pericardial effusion. <Conclusion> Mild to moderate concentric left ventricular hypertrophy. LVEF is 25-30%. Left atrium is moderately dilated. <ELECTRONICALLY SIGNED> By: Chris King MD, FACC 10/05/18 1551 155 [id number] Chris King MD, FAC /INF
[2018-10-06] VITALS (52 sets, daily range): BP systolic 80–159; BP diastolic 44–123
[2018-10-06 03:49] LABS: ABSOLUTE LYMPHOCYTES 0.6 thou/uL (0.8-5.3); ABSOLUTE MONOCYTES 1.2 thou/uL (0.0-1.2); BASOPHILS 0.1 %; EOSINOPHILS 0.1 %; HEMATOCRIT 29.1 % (42.0-52.0); HEMOGLOBIN 9.5 gm/dL (14.0-18.0); MCH 27.2 pg (26.0-34.0); MCHC 32.5 g/dL (28.0-37.0); MCV 83.6 fL (80.0-100.0); MPV 8.7 fl. (7.2-11.1); NUCLEATED RBCS 0 /100WBC; PLATELET COUNT* 206 thou/uL (150-400); POLYS 84.8 %; RBC 3.48 mil/uL (4.50-6.00); RDW-CV 15.6 % (10.5-14.5); WBC 11.8 thou/uL (4.0-11.0)
[2018-10-06 04:03] LABS: CALCIUM 8.2 mg/dL (8.5-10.1); POTASSIUM 4.6 mmol/L (3.5-5.1)
[2018-10-06 04:04] LABS: CREATININE 4.9 mg/dL (0.6-1.3)
--- NOTE | 2018-10-06 07:44 | CON ---
[address] [address] CONSULTATION Name: ANA MARÍA MCLAUGHLIN Room: [address] ADM IN M.R.#: [id number] Admission: 10/05/18 Attend Phys: Pako Jang MD Discharge: Date of : 64 Report #: [id number] THIS REPORT FOR: //name// CC: Pako Jang [facility] DATE OF SERVICE: 10/05/2018 INFECTIOUS DISEASE CONSULTATION ATTENDING PHYSICIAN: Pako Jang MD REASON FOR EVALUATION: Sepsis. HISTORY OF PRESENT ILLNESS: Chart reviewed, patient examined. This is a 58-year-old gentleman with fairly extensive medical history given his age, whom I saw back in 2016. He has end-stage renal disease, on thrice weekly hemodialysis due to diabetes mellitus, although he dated less than 10 years. At that point, he was diagnosed with necrotizing fasciitis involving his right thumb. He has had partial amputation. This was complicated by pneumonitis and respiratory failure. He is in a care situation that apparently requires a wheelchair at this point. He was found minimally responsive. He was evaluated at an outside hospital, referred for septic shock. At that point, he was transferred and now seen in the Intensive Care Unit. He is on pressor support. He is still fairly profoundly encephalopathic. He is difficult to ascertain details. He was found to have high white count. Chest x-ray, there is question of pneumonitis in the left base. Urinalysis was otherwise fairly unremarkable. Lactic acid 0.7. He was empirically dosed with cefepime as well as vancomycin. Cultures are pending. ALLERGIES: Listed to LEVOFLOXACIN. CURRENT MEDICATIONS: Include vancomycin, apixaban, pantoprazole, hydralazine. 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 SOCIAL HISTORY: Smokes cigarettes, occasional ethanol. No illicit drug use. REVIEW OF SYSTEMS: Not obtainable. PHYSICAL EXAMINATION: [place] [address] CONSULTATION Name: ANA MARÍA MCLAUGHLIN Room: [address] IN [facility].#: [id number] Admission: 10/05/18 Attend Phys: Pako Jang MD Discharge: Date of : 64 Report #: [id number] GENERAL: He appears chronically ill. He does arouse. He has short answers to some questions, appears undernourished. He is on nasal cannula oxygen. VITAL SIGNS: Temperature 100.3, pulse 93, respirations 20, blood pressure is 89/45. SKIN: Warm, dry. HEENT: Normocephalic. NECK: Supple. LUNGS: Diminished breath sounds. HEART: Regular. Borderline tachycardic. I do not appreciate a murmur. ABDOMEN: Mildly distended, soft. No apparent peritoneal signs. GENITOURINARY AND RECTAL: Deferred. EXTREMITIES: Distal right lower extremity has pronounced deformity about the right ankle, there is some degree of inflammation consistent with Charcot changes. LABORATORY DATA: Chest x-ray as described above. Urinalysis 0-5 white cells. Drug screen was negative for all agents tested. Alcohol less than 10. Lactic acid 0.7. Electrolytes: Sodium 136, potassium 5.3, chloride 101, bicarbonate is 22, anion gap of 13, BUN and creatinine of 77 and 6.6, glucose of 173. AST of 21, ALT of 47, alkaline phosphatase of 235 Albumin of 2.3. Total protein 6.7. CBC: White count of 16.2, H and H of 9.1 and 28.1, platelets of 167. ASSESSMENT AND PLAN: Sepsis with Charcot changes associated with the right ankle. This may well be the source. His plain film is pending, may need additional studies such as MRI. Continue the empiric therapy with vancomycin redose for gram-negatives after dialysis today. See how he does clinically. Certainly, he remains critically ill at this point. He was adamant about no surgery on his legs. <ELECTRONICALLY SIGNED> By: Regulo Whitaker MD 10/06/18 0744 [id number] Whitaker MD /nt
[2018-10-06 10:09] LABS: HEPATITIS B SURFACE AG Negative (Negative)
[2018-10-06] MEDS ORDERED: CELEBREX 200 M200 M1 PO (11:09)
[2018-10-06] MEDS ORDERED: LYRICA 50 MG50 MG PO (11:09)
[2018-10-06] MEDS ORDERED: LASIX 80 MG TAB80 MG PO (11:10)
[2018-10-07] VITALS (29 sets, daily range): BP systolic 131–173; BP diastolic 70–126
[2018-10-07 04:30] LABS: ABSOLUTE LYMPHOCYTES 0.8 thou/uL (0.8-5.3); ABSOLUTE MONOCYTES 1.3 thou/uL (0.0-1.2); ABSOLUTE NEUTROPHILS 9.1 thou/uL (1.6-8.1); BASOPHILS 0.1 %; EOSINOPHILS 0.4 %; HEMATOCRIT 31.1 % (42.0-52.0); HEMOGLOBIN 10.1 gm/dL (14.0-18.0); LYMPHOCYTES 6.9 %; MCH 27.1 pg (26.0-34.0); MCHC 32.6 g/dL (28.0-37.0); MCV 83.3 fL (80.0-100.0); MONOCYTES 11.4 %; MPV 8.8 fl. (7.2-11.1); NUCLEATED RBCS 0 /100WBC; PLATELET COUNT* 231 thou/uL (150-400); POLYS 81.2 %; RBC 3.74 mil/uL (4.50-6.00); RDW-CV 15.8 % (10.5-14.5); WBC 11.2 thou/uL (4.0-11.0)
[2018-10-07 04:44] LABS: ALBUMIN 2.2 g/dL (3.4-5.0); CALCIUM 8.2 mg/dL (8.5-10.1); CREATININE 4.8 mg/dL (0.6-1.3); POTASSIUM 4.2 mmol/L (3.5-5.1); TOTAL BILIRUBIN 0.9 mg/dL (<0.1-1.0); TOTAL PROTEIN 7.3 g/dL (6.4-8.2)
--- NOTE | 2018-10-07 08:05 | CON ---
[address] [address] CONSULTATION Name: ANA MARÍA MCLAUGHLIN Room: [address] IN M.R.#: [id number] Admission: 10/05/18 Attend Phys: Ricci Jang MD Discharge: Date of : 64 Report #: [id number] THIS REPORT FOR: //name// CC: RICCI Smith MD PULMONARY CONSULTATION ATTENDING PHYSICIAN: Ricci Jang MD LOCATION: The patient is located in ICU, bed 2. INDICATION FOR CONSULTATION: Hypoxemia, dyspnea, sepsis. HISTORY OF PRESENT ILLNESS: The patient is a 58-year-old male, recent smoker with multiple medical problems. The patient was transferred here from [place], [place], because of fever, hypotension and right leg cellulitis. The patient has been on 3 times weekly hemodialysis for the past year or two secondary to diabetes mellitus. The patient had had multiple medical problems in the past. He is not a very accurate historian today. He normally is on oxygen 2 or 3 liters at night and occasionally during the day at home in [place], states he wears it occasionally, he will take breathing treatments, but again, he is not very compliant on that. He has been insulin-dependent diabetic for years and again has had issues with compliance, and he has had an elevated white count, been on pressors or dopamine with sepsis syndrome, is making a little bit urine and had partial hemodialysis yesterday for about an hour or two, he is going to have more hemodialysis this morning; he seems to be little bit more hemodynamically stable; and hopefully, we will take off 2 or 3 liters of fluid this morning. I was asked to see the patient. ALLERGIES: HIS PREVIOUS ALLERGIES INCLUDE LEVOFLOXACIN, WHICH GIVES HIM NAUSEA. PAST MEDICAL HISTORY: He has diabetes mellitus type 2, complicated by end-stage renal disease with nephropathy and vasculopathy. He does not have any coronary artery disease on a previous cardiac catheterization 2 years ago. Also he has peripheral neuropathy. Has Charcot changes of his right distal extremity. He has had a history of cervical fusions. He has also had history of DVT in 03/2016, complicated by PE. He had no pulmonary hypertension or cor pulmonale at that time, did not need oxygen at least on that reason and was placed on Eliquis at that time; the patient states he is taking that. Also had a right thumb partial amputation and necrotizing fasciitis. Also has some COPD. MEDICATIONS: At least currently in the hospital, vancomycin, cefepime, subcutaneous heparin, prophylactic, and then he was on apixaban or Eliquis 5 mg p.o. b.i.d., Protonix 40 mg daily, Zofran, [place] [address] CONSULTATION Name: ANA MARÍA MCLAUGHLIN Room: [address] IN .R.#: [id number] Admission: 10/05/18 Attend Phys: Ricci Jang MD Discharge: Date of : 64 Report #: [id number] dopamine per drip at 7 mcg. Oxygen currently is at 10 liters. FAMILY HISTORY: Positive for diabetes, but negative for premature cardiopulmonary disease. SOCIAL HISTORY: The patient lives in [place], [place], may live by himself. He occasionally smokes cigarettes. It is hard to get him pin down if it is a half pack or pack a day, appears to be 30-40 years. Has occasional alcohol use. Denies any illicit drug use. REVIEW OF SYSTEMS: A 14-point review of systems was reviewed and negative except for the pertinent positives that were noted in the HPI. PHYSICAL EXAMINATION: GENERAL: Chronically ill-appearing 58-year-old male, appears a little bit older than his stated age. He answers simple yes and no questions. He is oriented to person and to time, intermittently to place. VITAL SIGNS: Blood pressure is 110/56 on dopamine pressors; heart rate is 90; respirations are 20; his saturation on 10 liters is 93%; his temperature is 37 degrees at this time. The patient is 5 feet 10 inches tall, weight is 97 kilograms or 216 pounds, BMI is 30. HEENT: Mucous membranes are dry. NECK: Supple, without nodes, no increase in jugular venous pressure. CHEST: Reveals a few bibasilar rhonchi. No crackles noted. CARDIOVASCULAR: Regular rate and rhythm without murmur, gallop or rub. Heart rate is 90. ABDOMEN: Obese, without masses or megaly. EXTREMITIES: He has a Charcot joint and either a footdrop on the right foot, it is somewhat warm and red to touch, he states it is somewhat tender. Left foot also has some peripheral vascular disease, venous and arterial, with poor peripheral pulses of 0 to 1+. Also has neuropathy and decreased sensation. NEUROLOGIC: He moves his arms 3/5+. His legs, he will move maybe just 1/5+ and somewhat weakly. LABORATORY DATA: Hemoglobin is 9.5; white count is 11,800; platelet count is 206,000; 85% segmented neutrophils; absolute neutrophil count is 10,000; lymphocytes are only 600. Previous white count was 16,000 yesterday. Sodium is 134 this morning, potassium is 4.6, chloride is 96, BUN is 48, creatinine is 4.9, glucose is 119. Lactic acid was 0.7 yesterday, and calcium is 8.2. Prealbumin is 10.2, which is low. ABGs on 10 liters showed a pO2 of 61, a pH of 7.34, pCO2 is 39, bicarbonate is 20, base excess negative 4, O2 sat was 89% and carboxyhemoglobin was only 0.6. Blood cultures are pending. Serology, hepatitis B surface antigen is pending. Chest x-ray shows heart size upper limits of normal, and we talked about mild pulmonary edema, not all that impressed, could have left basilar atelectasis, no definite pneumonia was noted, very small [place] [address] CONSULTATION Name: ANA MARÍA MCLAUGHLIN Room: [address] IN M.R.#: [id number] Admission: 10/05/18 Attend Phys: Ricci Jang MD Discharge: Date of : 64 Report #: [id number] IMPRESSION: 1. Sepsis syndrome with hypoxemia, either from an infected right foot joint or other etiology. He could have early bronchitis, possibly early lower lobe pneumonia. 2. Diabetes mellitus with nephropathy, neuropathy and vasculopathy. Also on hemodialysis. 3. Chronic bilateral femoral deep venous thromboses noted on venous Dopplers, V/Q scan was low probability. Previous echocardiograms have not shown pulmonary hypertension. PLAN: Continue on Eliquis. We will do a followup chest x-ray after his hemodialysis today. We will see if his oxygenation does start to improve. Clinically, he looks better. I think hopefully his oxygenation will continue to improve. He is on multiple antibiotics, which would cover any bronchitis or early pneumonitis he may have, also will help the skin infection and the possible joint infection. Overall prognosis is quite guarded because of his multiple comorbidities and inability to care for himself. This has been a 35-minute critical care consult. <ELECTRONICALLY SIGNED> By: Jesenia Vázquez MD 10/07/18 0805 [id number] [id number] Oh MD /nt
--- NOTE | 2018-10-07 15:36 | CON ---
[address] [address] CONSULTATION Name: ANA MARÍA MCLAUGHLIN Room: [address] ADM IN M.R.#: [id number] Admission: 10/05/18 Attend Phys: Pako Jang MD Discharge: Date of : 64 Report #: [id number] THIS REPORT FOR: //name// [facility]: [facility] DATE OF SERVICE: 10/06/2018 CHIEF COMPLAINT: Ulceration to right lateral hindfoot with deep tissue infection, possible osteomyelitis. He is on vancomycin, but he is on parenteral antibiotics per Dr. Whitaker. Wound cultures are pending. Blood cultures negative x 2. Foot radiographs reveal partial resection of the right cuboid bone with no obvious bone destruction. Upon my review, there is periostitis to the inferior margin of the remaining cuboid as well as the proximal aspect of the fifth metatarsal. There is no subcutaneous emphysema. The plantar foot wound does communicate with the underlying cuboid metatarsal articulation. The patient is more alert today. LABORATORY DATA: WBC 11.8, hemoglobin 9.5, hematocrit 29.1 and platelets 206. PHYSICAL EXAMINATION: Advanced inflammation and erythema to the right lateral hindfoot surrounding the lateral foot ulcer. The ulcer probes down to bone, and I am able to express several drops of purulence. 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 No pallor, cyanosis or signs of acute vascular embarrassment. No lesions noted to left foot. IMPRESSION: Diabetic foot ulceration, right foot with deep tissue infection, likely osteomyelitis. PLAN: The patient dialyzed this morning and is scheduled for foot MRI later today. He will likely require surgical debridement given the visible bone destruction and soft tissue infection, likely require excision of the remaining cuboid and resection of proximal fourth and fifth metatarsals with bone cultures and pathology. I explained this to the patient and he seems to understand the nature of the surgical procedure. I will discuss with Internal Medicine. <ELECTRONICALLY SIGNED> By: Mina Xavier DPM 10/07/18 1536 1537 [id number] Xavier DPM /nt
--- NOTE | 2018-10-07 15:36 | CON ---
[address] [address] CONSULTATION Name: ANA MARÍA MCLAUGHLIN Room: [address] IN M.R.#: [id number] Admission: 10/05/18 Attend Phys: Pako Jang MD Discharge: Date of : 64 Report #: [id number] THIS REPORT FOR: //name// [facility] DATE OF SERVICE: 10/05/2018 REASON FOR CONSULTATION: Diabetic foot ulceration, right foot. HISTORY OF PRESENT ILLNESS: A 58-year-old male admitted with altered mental state, leukocytosis and septic shock. He was transferred from another hospital due to medical complexity. He has type 2 diabetes mellitus, is wheelchair bound and on hemodialysis. He is a poor historian, but he is oriented to self and place. History of the right foot wound is unclear, although he relates prior surgical debridement to the area. He states the wound has been present for several months. He resides at home, a personal friend checks on him daily and dresses his foot wound. He relies on [employer] for transportation. He has a complex past medical history. PAST MEDICAL HISTORY: Acute renal failure, acute respiratory failure with hypoxia, acute tubular necrosis, chronic kidney disease, diabetes mellitus, diastolic heart failure, hyperkalemia, hyperlipidemia, hypertension, hypoxia, left lower lobe pneumonia, sepsis, tobacco use, uremia. LABORATORY DATA: WBC 16.2, RBC 3.34, hemoglobin 9.1, hematocrit 28.1 and platelets 167. Potassium 5.3, BUN 77, creatinine 6.6 and glucose 173. PHYSICAL EXAMINATION: EXTREMITIES: There is an ulceration to the right lateral hindfoot overlying the cuboid fifth metatarsal articulation. The wound measures roughly 3 x 2.5 x 2.5 cm. I can probe to bone. I can express a small amount of serous fluid. There is periwound erythema and edema consistent with cellulitis and soft tissue infection. The inflammation extends to the lower leg. The patient has a rigid equinovarus foot deformity, which is nonreducible. He has similar deformity to the left foot with no open lesions. His feet are warm with no pallor or cyanosis. He has dopplerable dorsalis pedis and posterior tibial pulses bilaterally. No paronychia noted. No other open lesions to either extremity. IMAGING STUDIES: Review of ankle x-ray shows anatomic alignment of the right ankle joint mortise with no fracture, subluxation or signs of Charcot arthropathy to the ankle joint; there is Charcot arthropathy to the right fourth and fifth metatarsal cuboid articulation with osteolysis and joint subluxation. IMPRESSION: 1. Diabetic foot ulceration to the right lateral hindfoot overlying cuboid [facility] [address] [place] [address] CONSULTATION Name: ANA MARÍA MCLAUGHLIN Marie Room: [address] IN .R.#: [id number] Admission: 10/05/18 Attend Phys: Pako Jang MD Discharge: Date of : 64 Report #: [id number] metatarsal articulation. 2. Charcot arthropathy with rigid equinovarus deformity, bilateral lower extremities. PLAN: Aerobic and anaerobic cultures were taken. The wound was cleansed and packed with Aquacel Ag and covered with bordered foam. The patient may have underlying osteomyelitis, which is difficult to determine given the underlying Charcot arthropathy. I feel MRI would be difficult to obtain given the patient's body habitus and medical condition, plus Charcot arthropathy and osteomyelitis often presents nearly identical on MRI. I will order foot radiographs and monitor the patient daily. He may require surgical debridement in the future pending his clinical course. I will follow the patient daily. <ELECTRONICALLY SIGNED> By: Mina Xavier DPM 10/07/18 1536 [id number] Xavier DPM /nt
[2018-10-08] VITALS (15 sets, daily range): BP systolic 114–155; BP diastolic 60–83
[2018-10-09] VITALS (7 sets, daily range): BP systolic 92–148; BP diastolic 57–86
[2018-10-09 06:08] LABS: ABSOLUTE BASOPHILS 0.1 thou/uL (0.0-0.2); ABSOLUTE EOSINOPHILS 0.3 thou/uL (0.0-0.7); ABSOLUTE LYMPHOCYTES 1.3 thou/uL (0.8-5.3); ABSOLUTE MONOCYTES 1.6 thou/uL (0.0-1.2); ABSOLUTE NEUTROPHILS 9.2 thou/uL (1.6-8.1); BASOPHILS 0.9 %; EOSINOPHILS 2.5 %; HEMATOCRIT 20.6 % (42.0-52.0); LYMPHOCYTES 10.7 %; MCV 84.6 fL (80.0-100.0); MONOCYTES 12.6 %; MPV 8.3 fl. (7.2-11.1); NUCLEATED RBCS 0 /100WBC; PLATELET COUNT* 234 thou/uL (150-400); POLYS 73.3 %; RBC 2.43 mil/uL (4.50-6.00); RDW-CV 15.8 % (10.5-14.5); WBC 12.6 thou/uL (4.0-11.0)
[2018-10-09 06:17] LABS: ALBUMIN 1.9 g/dL (3.4-5.0); CALCIUM 7.9 mg/dL (8.5-10.1); CREATININE 6.5 mg/dL (0.6-1.3); POTASSIUM 4.2 mmol/L (3.5-5.1); TOTAL BILIRUBIN 0.8 mg/dL (<0.1-1.0); TOTAL PROTEIN 6.6 g/dL (6.4-8.2)
[2018-10-09 06:29] LABS: HEMOGLOBIN 6.6 gm/dL (14.0-18.0)
[2018-10-09 14:55] LABS: HEMATOCRIT 33.5 % (42.0-52.0)
[2018-10-09 15:05] LABS: HEMOGLOBIN 10.8 gm/dL (14.0-18.0)
[2018-10-10 03:49] VITALS: BP 145/77
[2018-10-10 04:55] LABS: ABSOLUTE EOSINOPHILS 0.3 thou/uL (0.0-0.7); ABSOLUTE LYMPHOCYTES 1.2 thou/uL (0.8-5.3); ABSOLUTE MONOCYTES 1.5 thou/uL (0.0-1.2); ABSOLUTE NEUTROPHILS 7.6 thou/uL (1.6-8.1); BASOPHILS 0.3 %; EOSINOPHILS 2.4 %; HEMATOCRIT 29.9 % (42.0-52.0); HEMOGLOBIN 9.6 gm/dL (14.0-18.0); LYMPHOCYTES 11.1 %; MCH 27.2 pg (26.0-34.0); MCHC 32.1 g/dL (28.0-37.0); MCV 84.7 fL (80.0-100.0); MONOCYTES 14.4 %; MPV 8.6 fl. (7.2-11.1); NUCLEATED RBCS 0 /100WBC; PLATELET COUNT* 234 thou/uL (150-400); POLYS 71.8 %; RBC 3.53 mil/uL (4.50-6.00); RDW-CV 15.5 % (10.5-14.5); WBC 10.5 thou/uL (4.0-11.0)
[2018-10-10 05:01] LABS: CALCIUM 8.3 mg/dL (8.5-10.1); POTASSIUM 4.7 mmol/L (3.5-5.1)
[2018-10-10 05:17] LABS: CREATININE 4.1 mg/dL (0.6-1.3)
[2018-10-10 07:50] VITALS: BP 129/64
[2018-10-10 13:33] VITALS: BP 124/61
[2018-10-10 17:09] VITALS: BP 138/60
[2018-10-10 20:12] VITALS: BP 125/71
[2018-10-11] VITALS: BP 112/63; BP 126/56
[2018-10-11 04:25] VITALS: BP 134/64
[2018-10-11 07:45] VITALS: BP 143/72
[2018-10-11 12:00] VITALS: BP 141/73
[2018-10-11 16:30] VITALS: BP 142/72
[2018-10-11 19:50] VITALS: BP 162/88
[2018-10-12] VITALS (7 sets, daily range): BP systolic 132–172; BP diastolic 68–82
[2018-10-12 04:14] LABS: ABSOLUTE BASOPHILS 0.1 thou/uL (0.0-0.2); ABSOLUTE EOSINOPHILS 0.4 thou/uL (0.0-0.7); ABSOLUTE LYMPHOCYTES 1.2 thou/uL (0.8-5.3); ABSOLUTE MONOCYTES 1.3 thou/uL (0.0-1.2); ABSOLUTE NEUTROPHILS 7.7 thou/uL (1.6-8.1); BASOPHILS 1.1 %; EOSINOPHILS 3.9 %; HEMATOCRIT 29.5 % (42.0-52.0); HEMOGLOBIN 9.6 gm/dL (14.0-18.0); MCH 27.4 pg (26.0-34.0); MCHC 32.4 g/dL (28.0-37.0); MCV 84.5 fL (80.0-100.0); MONOCYTES 12.4 %; MPV 8.1 fl. (7.2-11.1); NUCLEATED RBCS 0 /100WBC; PLATELET COUNT* 267 thou/uL (150-400); POLYS 71.6 %; RBC 3.49 mil/uL (4.50-6.00); RDW-CV 15.7 % (10.5-14.5); WBC 10.8 thou/uL (4.0-11.0)
[2018-10-12 04:26] LABS: POTASSIUM 5.7 mmol/L (3.5-5.1)
[2018-10-12 04:35] LABS: CREATININE 7.1 mg/dL (0.6-1.3)
[2018-10-12] MEDS ORDERED: ELIQUIS5 MG PO (13:15)
[2018-10-12] MEDS ORDERED: CIPRO250 M1 PO (13:25)
[2018-10-12] MEDS ORDERED: DIFLUCAN200 MG PO (13:27)
[2018-10-12] MEDS ORDERED: VANCOMYCIN HCL250 MG PO (13:29)
--- NOTE | 2018-10-12 17:06 | PATH ---
[facility] [address] [place] [address] PATHOLOGY RPT PROCEDURE Name: TAZ MCLAUGHLIN Room: [address] IN M.R.#: [id number] Admission: 10/05/18 Date of : 64 Discharge: 10/12/18 Report #: [id number] Path Case #: [id number] [facility] Accession Number: [id number] . 01 Material submitted: . foot - RIGHT CUBOID,FOOT. Modifiers: right . 01 Clinical history: . Right foot osteomyelitis. . 02 Diagnosis: Right cuboid: - Benign osteocartilaginous segment with osteomyelitis and acute inflammation of attached fibrofatty soft tissues. See comment. (GREG:yemi; 10/12/2018) MBMarie/10/12/2018 . 02 Comment: The predominance of osteomyelitis is adjacent to the articular end, however, subtle inflammation is seen in the stroma at the opposite inked edge as well. (GREG:yemi; 10/12/2018) . 02 Electronically signed: . Augustin Guerrero MD, Pathologist NPI- [id number] . 01 Gross description: . Received in formalin labeled "Taz Mclaughlin, right cuboid" is an irregular fragment of browning-white bone measuring 3.5 x 2.6 x 1.9 cm. A smooth concave cartilaginous area is identified, measuring 2.1 x 1.7 x 0.2 cm. The remaining surfaces are ragged and roughened, possibly consistent with surgical margins. The specimen is inked entirely black. A outside sales representative insurance cross-section is submitted in cassette A1 following decalcification. ([facility]; 10/08/2018) SYC/SYC . 02 Pathologist provided ICD-10: M86.8X7, M79.89 . 02 CPT . 722819, 580234 Specimen Comment: A courtesy copy of this report has been sent to Specimen Comment: [phone], . Specimen Comment: Report sent to / DR PERSON Performed at: [address] [facility] [address], [place] [address] [place] [address] PATHOLOGY RPT PROCEDURE Name: TAZ MCLAUGHLIN Room: [address] IN M.R.#: [id number] Admission: 10/05/18 Date of : 64 Discharge: 10/12/18 Report #: [id number] Path Case #: [id number] MD Ernesto Vazquez MD Phone: [phone] Performed at: [address] [facility] [address] [place]BDIAS Wilkins [id number] MD Augustin Guerrero MD Phone: [phone]
--- NOTE | 2018-10-14 09:50 | CON ---
[facility] [address] [place] [address] CONSULTATION Name: ANA MARÍA MCLAUGHLIN Room: [address] IN M.R.#: [id number] Admission: 10/05/18 Attend Phys: Pako Jang MD Discharge: 10/12/18 Date of : 64 Report #: [id number] THIS REPORT FOR: //name// CC: Pako Jang [facility] DATE OF SERVICE: 10/05/2018 REQUESTING PHYSICIAN: Pako Jang M.D. REASON FOR CONSULTATION: Assistance providing dialysis. HISTORY OF PRESENT ILLNESS: The patient is a 58-year-old gentleman, with medical history significant for end-stage renal disease, history of diabetes mellitus type 2, hypertension, and history of tobacco abuse and bilateral Charcot feet with possible osteomyelitis of the right foot, admitted to the hospital with altered mental status. The patient's dialysis schedule is Friday, Friday and Friday. He was admitted with diagnosis of sepsis, is hypotensive. PAST MEDICAL HISTORY: Significant for symptoms as I mentioned earlier. SOCIAL HISTORY: Positive for tobaccoism. FAMILY HISTORY: Noncontributory. MEDICATIONS: Prior to admission reviewed. REVIEW OF SYSTEMS: Unreliable due to his encephalopathy. PHYSICAL EXAMINATION: GENERAL: In Intensive Care Unit. HEAD, EYES, EARS, NOSE, AND THROAT: His pupils are round. NECK: Supple. He has tunneled dialysis catheter in the right IJ. VITALS: Reviewed. He is hypotensive, blood pressure in mid 80s systolic. LUNGS: Decreased air movement. CARDIOVASCULAR: Tachycardia. ABDOMEN: Soft. EXTREMITIES: He got bilateral Charcot feet and there is possible chronic osteomyelitis. I think that his sepsis could be due to osteomyelitis. LABORATORY DATA: Significant for white count 16.2000. Serum sodium 136, potassium 5.3, chloride 101, BUN 77, creatinine 6.6. Chest x-ray: There is some lower lobe atelectasis and a small right pleural [facility] [address] [place] [address] CONSULTATION Name: ANA MARÍA MCLAUGHLIN Room: [address]#: [id number] Admission: 10/05/18 Attend Phys: Pako Jang MD Discharge: 10/12/18 Date of : 64 Report #: [id number] effusion and some vascular congestion. ASSESSMENT: 1. End-stage renal disease. 2. Mild hyperkalemia. 3. Sepsis, unclear etiology. 4. Diabetic wound. PLAN: Antibiotics per primary care team. From my standpoint, I will provide dialysis and follow electrolytes very closely. <ELECTRONICALLY SIGNED> By: Benito Schaeffer MD 10/14/18 0950 0944 [id number] Schaeffer MD /PMT
--- NOTE | 2018-10-14 13:08 | CON ---
[address] [address] CONSULTATION Name: ANA MARÍA MCLAUGHLIN Room: [address] IN M.R.#: [id number] Admission: 10/05/18 Attend Phys: Pako Jang MD Discharge: 10/12/18 Date of : 64 Report #: [id number] THIS REPORT FOR: //name// CC: Pako Jang [facility] DATE OF SERVICE: 10/10/2018 CHIEF COMPLAINT: Postoperative day #3 for an excision of right cuboid and debridement of anterior calcaneus for osteomyelitis. HISTORY OF PRESENT ILLNESS: He received parenteral vancomycin post-dialysis. Surgical bone and tissue cultures growing Gram-positive cocci, preoperative swab cultures growing 2 species of Gram-negative rods and Streptococcus. Anatomic pathology is pending. His pain is better controlled with oral medication. He received 1 unit PRBC yesterday. LABORATORY DATA: WBC 10.5, RBC 3.53, hemoglobin 9.6, hematocrit 29.9, and platelets 234. BUN 36, creatinine 4.1, and glucose 227. PHYSICAL EXAMINATION: VITAL SIGNS: Temperature 98.6 and blood pressure 145/77. EXTREMITIES: Examination of the right foot reveals a substantial decrease in erythema and edema. There is no radha cellulitis, no active bleeding. The gauze was saturated with sanguineous drainage. Upon removal, no active bleeding noted. There is no pallor, cyanosis, or signs of acute vascular embarrassment. Riddhi-wound capillary refill was immediate. No right popliteal adenopathy or calf pain. He can flex and extend the right ankle somewhat. I did not remove the Aquacel Ag packing from the wound interior to prevent active bleeding. IMPRESSION: Osteomyelitis, right foot, type 2 diabetes mellitus, equinovarus Charcot foot deformity. PLAN: The foot was cleansed and dried and I reapplied a sterile compressive bandage with ABDs, Kerlix, Coban, and Shankar bandages. The patient to remain strictly nonweightbearing to the extremity. Physical therapy to work with the patient. Physical therapy previously ordered. The patient may wear his regular athletic shoe to the left foot as the left foot has no open lesions or pre-ulcerative calluses. I recommend placement to a care home facility post discharge. <ELECTRONICALLY SIGNED> By: Mina Xavier DPM 10/14/18 1308 0726 [id number] Xavier DPM /katelin
--- NOTE | 2018-10-14 13:08 | CON ---
[address] [address] CONSULTATION Name: ANA MARÍA MCLAUGHLIN Room: [address] IN M.R.#: [id number] Admission: 10/05/18 Attend Phys: Pako Jang MD Discharge: 10/12/18 Date of : 64 Report #: [id number] THIS REPORT FOR: //name// CC: Pako Jang [facility] DATE OF SERVICE: 10/09/2018 CHIEF COMPLAINT/HISTORY OF PRESENT ILLNESS: Postoperative day #2 for excision right cuboid and debridement of the anterior calcaneus for osteomyelitis. His pain is fairly well controlled with oral medication. He has been afebrile with no constitutional symptoms. His appetite is stable. Surgical tissue and bone cultures are showing Gram-positive cocci. LABORATORY DATA: WBC 12.6, RBC 2.43, hemoglobin 6.6, hematocrit 20.6, platelets 234, BUN 63, creatinine 6.5. PHYSICAL EXAMINATION: Decreased erythema and edema to the right hindfoot with no active bleeding; immediate periwound capillary refill with no pallor, cyanosis, or signs of acute vascular embarrassment; no right popliteal adenopathy or calf pain; overall, significantly improved in terms of decreased inflammation to the hindfoot. IMPRESSION: Osteomyelitis right foot, equinovarus Charcot arthropathy, type 2 diabetes mellitus with poor glycemic control, diabetic peripheral neuropathy. PLAN: The foot was cleansed and dried. I left the original Aquacel Ag and placed to the wound anterior. I applied external ABDs, Kerlix, and Shankar bandages for compression. The patient remained strictly nonweightbearing to the extremity. I ordered PT, OT, and Case Management evaluation for senior living facility placement. <ELECTRONICALLY SIGNED> By: Mina Xavier DPM 10/14/18 1308 0730 [id number] Xavier DPM /nt
--- NOTE | 2018-10-14 13:08 | CON ---
[facility] [address] [place] [address] CONSULTATION Name: ANA MARÍA MCLAUGHLIN Room: [address] IN M.R.#: [id number] Admission: 10/05/18 Attend Phys: Pako Jang MD Discharge: 10/12/18 Date of : 64 Report #: [id number] THIS REPORT FOR: //name// CC: Pako IZQUIERDOH CORINACLIVE Mancini M.D., [place], [place]. DATE OF SERVICE: 10/12/2018 CHIEF COMPLAINT: Followup of excision, right cuboid with debridement of anterior calcaneus with drainage of pyogenic arthritis to the calcaneocuboid joint. He is on parenteral vancomycin and ceftriaxone with good tolerance. He has been afebrile with stable vital signs and no constitutional symptoms. He is currently dialyzing. Surgical cultures grew Enterococcus faecalis and Serratia marcescens and yeast. Preoperative wound cultures grew the same bacteria plus E. coli. Surgical pathology is pending. The patient lives in [place], [place], and he would like to follow up with Dr. Christopher Mancini, General Surgeon in [place], [place], who was previously treating him for the right lateral foot wound. The patient has remained strictly nonweightbearing to the extremity and has completed physical therapy. LABORATORY DATA: WBC 10.8, RBC 9.6, hemoglobin 29.5 and platelets 267. BUN 79, creatinine 7.1 and glucose 154. PHYSICAL EXAMINATION: Temperature 98.8, pulse 94, respirations 14 and blood pressure 134/68. The right foot has a substantial decrease in inflammation with low-grade erythema and decreased edema. The wound bed has no active bleeding and is a mixture of granular buds with pale fibronecrotic tissue. There is no underlying fluctuance or crepitation. The periwound has immediate capillary refill and there are no signs of acute vascular embarrassment. No right popliteal adenopathy. Negative Homans and Jackson sign to both extremities. He has a rigid equinovarus foot deformity bilaterally. There are no open lesions to the left foot. IMPRESSION: Osteomyelitis status post cuboidectomy and debridement of anterior calcaneus with drainage of pyogenic arthritis. PLAN: The wound was debrided with scissors and forceps to remove subcutaneous tissue and slough. Scant bleeding was achieved. The wound was cleansed and packed with Aquacel Ag and covered with ABDs, Kerlix and Shankar bandage. The patient will complete dialysis today and be discharged back to his home in [place], [place]. The patient would like to follow up with his prior general surgeon in [place], [place]. I offered to follow up with him at [facility] with Dr. Regulo Whitaker, Infectious Disease, the patient states that transportation will be an issue. I do recommend continued offloading, wound VAC placement and hyperbaric oxygen. Instructed to maximize glycemic [facility] [address] [place] [address] CONSULTATION Name: ANA MARÍA MCLAUGHLIN Marie Room: [address] IN M.R.#: [id number] Admission: 10/05/18 Attend Phys: Pako Jang MD Discharge: 10/12/18 Date of : 64 Report #: [id number] control and nutrition and remain strictly nonweightbearing to the right extremity. <ELECTRONICALLY SIGNED> By: Mina Xavier DPM 10/14/18 1308 1250 [id number] Xavier DPM /katelin
--- NOTE | 2018-10-14 13:08 | OP ---
[address] [address] OPERATIVE REPORT Name: ANA MARÍA MCLAUGHLIN Room: [address] IN M.R.#: [id number] Admission: 10/05/18 Attend Phys: Pako Jang MD Discharge: 10/12/18 Date of : 64 Report #: [id number] THIS REPORT FOR: //name// CC: Pako Jang [facility] DATE OF SERVICE: 10/07/2018 SURGEON: Mina Xavier DPM PREOPERATIVE DIAGNOSIS: Osteomyelitis with septic arthritis, right lateral hindfoot. POSTOPERATIVE DIAGNOSIS: Osteomyelitis with septic arthritis, right lateral hindfoot. PROCEDURES: 1. Excision of right cuboid foot (remaining fragments). 2. Debridement right anterior calcaneus. 3. Incision and drainage, right foot and calcaneocuboid joint. ANESTHESIA: General LMA. INJECTABLES: 30 mL of a 1:1 mixture of 0.5% Marcaine plain and 1% lidocaine plain. ESTIMATED BLOOD LOSS: Roughly 20 mL. HEMOSTASIS: Right calf tourniquet at 275 mmHg. SPECIMENS: Right cuboid. CULTURES: 1. Bone, right cuboid, aerobic and anaerobic. 2. Soft tissue, right foot, aerobic and anaerobic. COMPLICATIONS: None. DESCRIPTION OF PROCEDURE: The patient was brought to the OR and placed on the table supine with induction of general LMA anesthesia. A well-padded right calf tourniquet was placed, and right ankle block was given with the above mixture. The extremity was prepped and draped aseptically. After exsanguination of and inflation of the tourniquet, a #10 surgical scalpel blade was used to create a circumferential incision around the existing ulcer, and the ulcer was excised down to the bone and sent. The tissue was sent for aerobic and anaerobic soft tissue culture. Some purulence was expressed during this time and [facility] [place] [address] OPERATIVE REPORT Name: ANA MARÍA MCLAUGHLIN Room: [address]#: [id number] Admission: 10/05/18 Attend Phys: Pako Jang MD Discharge: 10/12/18 Date of : 64 Report #: [id number] anaerobic swab cultures were taken from the surgical wound. Sharp dissection off the lateral cuboid extending to the lateral calcaneal wall and fifth metatarsal base was performed. Electrocautery was used for intraoperative hemostasis. Periosteal elevator and sharp dissection were used to achieve adequate exposure of the cuboid, which was lytic, irregular and discolored, which was consistent with osteomyelitis. The cuboid was excised in toto and a portion of bone was sent for aerobic and anaerobic bone culture. The remaining cuboid was sent for surgical pathology. The anterior lateral calcaneus was discolored and I thoroughly curettaged the articular surface and lateral aspect and some intramedullary bone, which was soft and brownish in coloration. The base of the fifth metatarsal was solid with no discoloration or discernible lysis. I debrided soft tissue from the wound and cauterized the region. It was flushed with sterile saline with bacitracin irrigant and dried. The wound was packed with Aquacel Ag and covered with unravelled Kerlix, ABDs more Kerlix and Shankar bandages. The tourniquet was released and the patient left the OR with no active bleeding or complications. <ELECTRONICALLY SIGNED> By: Mina Xavier DPM 10/14/18 1308 0712 [id number] Xavier DPM /nt
== END 2018-10-12 16:48 | disposition home or self-care (01) | DRG 853 ==
LOC: M.ICU 23:53 → M.2W 10-08 13:39
PROVIDERS: Internal Medicine Nephrology; ADMIT Internal Medicine
PROC: 0S9 Lower Joints, Drainage (ICD-10-PCS; principal; 2018-10-07)
PROC: 0QBL0ZZ Excision of Right Tarsal, Open Approach (ICD-10-PCS; principal; 2018-10-07)
PROC: 5A1D70Z Performance of Urinary Filtration, Intermittent, Less than 6 Hours Per Day (ICD-10-PCS; 2018-10-07)
PROC: 5A1D70Z Performance of Urinary Filtration, Intermittent, Less than 6 Hours Per Day (ICD-10-PCS; 2018-10-09)
PROC: 5A1D70Z Performance of Urinary Filtration, Intermittent, Less than 6 Hours Per Day (ICD-10-PCS; 2018-10-12)
DX: A41.9 Sepsis, unspecified organism (principal); J69.0 Pneumonitis due to inhalation of food and vomit; J96.01 Acute respiratory failure with hypoxia; G93.41 Metabolic encephalopathy; N18.6 End stage renal disease; I50.33 Acute on chronic diastolic (congestive) heart failure; I13.2 Hypertensive heart and chronic kidney disease with heart failure and with stage 5 chronic kidney disease, or end stage renal disease; I82.513 Chronic embolism and thrombosis of femoral vein, bilateral; M86.8X7 Other osteomyelitis, ankle and foot; R57.9 Shock, unspecified; E11.22 Type 2 diabetes mellitus with diabetic chronic kidney disease; E87.5 Hyperkalemia; F17.210 Nicotine dependence, cigarettes, uncomplicated; E78.5 Hyperlipidemia, unspecified; E11.621 Type 2 diabetes mellitus with foot ulcer; L97.519 Non-pressure chronic ulcer of other part of right foot with unspecified severity; E11.610 Type 2 diabetes mellitus with diabetic neuropathic arthropathy; E11.69 Type 2 diabetes mellitus with other specified complication; E11.65 Type 2 diabetes mellitus with hyperglycemia; E11.42 Type 2 diabetes mellitus with diabetic polyneuropathy; D63.1 Anemia in chronic kidney disease; Z88.1 Allergy status to other antibiotic agents; Z99.3 Dependence on wheelchair; Z99.2 Dependence on renal dialysis; Z87.01 Personal history of pneumonia (recurrent); Z79.2 Long term (current) use of antibiotics; Z79.899 Other long term (current) drug therapy